=== PATIENT | male | born 1970 | race Caucasian/White ===

== ENCOUNTER 2021-03-23 08:12 | Outpatient (CLI) | payer OTHER, SELFPAY | END 2021-03-23 08:13 | disposition home or self-care (01) | LOC: WOUND 08:13 | PROVIDERS: PCP Registered Nurse; Visit Provider Thoracic Surgery (Cardiothoracic Vascular Surgery) | DX: L97.822 Non-pressure chronic ulcer of other part of left lower leg with fat layer exposed (principal) | CPT/HCPCS: 11042; G0463 ==

== ENCOUNTER 2021-03-29 15:12 | Outpatient (CLI) | payer OTHER, SELFPAY | END 2021-03-29 15:13 | disposition home or self-care (01) | LOC: WOUND 15:13 | PROVIDERS: PCP Registered Nurse; Visit Provider Thoracic Surgery (Cardiothoracic Vascular Surgery) | DX: L97.822 Non-pressure chronic ulcer of other part of left lower leg with fat layer exposed (principal) | CPT/HCPCS: 11042 ==

== ENCOUNTER 2021-03-31 07:55 | Outpatient (CLI) | payer OTHER, SELFPAY ==
--- NOTE | 2021-03-31 08:04 | CT_ITS ---
WS: [id number] CT ANGIOGRAPHY OF THE ABDOMINAL AORTA WITH RUNOFF TO THE ANKLES HISTORY: ATHEROSCLEROSIS OF THE [place] ARTERIES OF LEFT LEG TECHNIQUE: Arterial injection is performed during imaging to evaluate the aorta and runoff vessels to the ankles. MIP and volume rendering imaging has also been performed. All images are reviewed. All C T scans at [facility] use at least one of these dose optimization techniques: automated ex posure control; mA and/or kV adjustment per patient size (includes targeted exams where dose is match ed to clinical indication); or iterative reconstruction. Contrast: Omnipaque 350; 95 mL IV. DLP: 1594.83 mGycm COMPARISON: None available. Abdominal aorta: Very mild atherosclerotic plaque. No aneurysm or occlusion. Celiac axis, SMA, renal arteries and DARIN are all patent. RIGHT lower extremity arterial system: RIGHT common, internal and external iliac arteries are patent. Femoral and superficial femoral and deep profunda are normal caliber. Good enhancement to Chad's c anal and also in the popliteal artery. No aneurysm. Good runoff to the ankle. LEFT lower extremity arterial system: RIGHT common, internal and external iliac arteries are patent. Common femoral and deep profunda and SFA are normally enhancing. Good opacification Chad's canal an d the popliteal artery. Three-vessel runoff to the ankle is normal. Benign granuloma LEFT lung base. Mild enlargement of the LEFT heart chambers. Small hiatal hernia. Li henry, gallbladder, pancreas, spleen and adrenal glands are negative. Variable enhancement within the p ortal vein is due to the early phase of injection. No renal mass or obstruction. No ascites. Normal G I tract. There are very few small shoddy retroperitoneal lymph nodes. Bilateral L5 pars defects. Numerous collateral vessels along the LEFT side. Small bilateral hydroceles. Small LEFT popliteal cyst. CT/CT angio abd aorta runof [id number] IMPRESSION: 1. No significant stenosis of the lower extremity arterial system. 2. Very minimal atherosclerosis abdominal aorta. 3. Mild LEFT heart enlargement. 4. Small LEFT popliteal cyst.
[2021-03-31] MEDS: iohexol 350 mg/mL 100 mL Btl IV (08:35)
== END 2021-03-31 07:56 | disposition home or self-care (01) ==
PROVIDERS: PCP Registered Nurse; Visit Provider Thoracic Surgery (Cardiothoracic Vascular Surgery)
DX: I70.212 Atherosclerosis of native arteries of extremities with intermittent claudication, left leg (principal); I70.242 Atherosclerosis of native arteries of left leg with ulceration of calf; I51.7 Cardiomegaly; M71.22 Synovial cyst of popliteal space [Baker], left knee
CPT/HCPCS: 75635; Q9967

== ENCOUNTER 2021-04-12 13:40 | Outpatient (CLI) | payer OTHER, SELFPAY | END 2021-04-12 13:41 | disposition home or self-care (01) | LOC: WOUND 13:41 | PROVIDERS: PCP Registered Nurse; Visit Provider Nurse Practitioner Family | DX: Z09 Encounter for follow-up examination after completed treatment for conditions other than malignant neoplasm (principal) | CPT/HCPCS: 99212 ==

== ENCOUNTER 2021-04-22 07:55 | Outpatient (CLI) | payer OTHER, SELFPAY ==
--- NOTE | 2021-04-22 08:00 | USCV_ITS ---
Colton Nicolas Age: 51 Gender: M : 1970 Exam Date: 04/22/2021 08:37 Ordering Phys: Simba Parker MD (Andy) ([email or web address]) Technologist: Elaine Delgado Exam Location: [facility] – [place] Indication: HISTORY: Patient states he had water mocassin bite left calf at age 12. Recurring ulcer left calf area with visible varicosities PROCEDURES: Bilateral duplex Venous Insufficiency study of the Deep and Superficial systems was carried out according to normal protocol with the patient in supine positon for deep system and dependent position for the superficial system. Serial compression, augmentation maneuvers, and spectral Doppler flow evaluation were performed. FINDINGS: No DVT or superficial thrombus seen in right or left leg RIght leg reflux noted in distal SFJ, GSV prox and mid segments Left leg significant reflux noted from SFJ to GSV below knee. Also reflux noted in left popliteal deep vein. Vessel diameters and reflux times noted above. Echolucent area, measuring 1.44 x 2.28 cm in the left popliteal fossa, laterally. CONCLUSIONS 1. No evidence of DVT in the above-mentioned identifiable veins. 2. On the right side, significant venous reflux of greater than 500 ms were noted at the greater saphenous vein segments distal to the saphenofemoral junction, proximal and mid greater saphenous vein segments. The saphenous vein segments were less than 1 cm from the surface. There were measuring 0.36 to 0.3 cm in diameter 3. On the left side, significant venous reflux of greater than 500 ms (ranging anywhere from 3660 to 6510 msecs) are noted throughout the greater saphenous vein segments including the saphenofemoral junction and distal to the saphenofemoral junction. These venous segments were less than 1 cm from the surface. They were measuring 0.53-0.85 centimeters in diameter 4. The popliteal vein on the left side also was found to have significant venous reflux. 5. An echolucent area in the left popliteal region, laterally, suggestive of Sandoval's cyst, measuring 1.44 x 2.28 cm. The rest of the venous dimensions and the depth on the service are as mentioned above Dr Ravi Reyes MD [facility] (Electronically Signed) Final Date: 23 April 2021 13:05 S
== END 2021-04-22 07:56 | disposition home or self-care (01) ==
LOC: RAD 07:58
PROVIDERS: PCP Registered Nurse; Visit Provider Thoracic Surgery (Cardiothoracic Vascular Surgery)
DX: I70.242 Atherosclerosis of native arteries of left leg with ulceration of calf (principal); I87.2 Venous insufficiency (chronic) (peripheral)
CPT/HCPCS: 93970